=== PATIENT | male | born 1955 | race Two or more races ===

== ENCOUNTER 2018-09-14 12:09 | Outpatient (CLI) | payer BC ==
[~2018-09-14 12:09] MED LIST: CIALIS20 MG ORAL; PROSCAR5 MG ORAL; VALACYCLOVIR500 MG ORAL
--- NOTE | 2018-09-14 16:26 | Diagnostic Imaging Report ---
Indication: Cough Technique: 2 views of the chest Comparison: None Findings: Lungs and pleural spaces are clear. The heart size is normal. The bones are unremarkable except for minimal thoracic scoliotic deformity. Impression: Negative
== END 2018-09-14 14:09 | disposition home or self-care (01) ==
LOC: RAD 12:09
DX: R05 Cough (principal); M41.84 Other forms of scoliosis, thoracic region
CPT/HCPCS: 71046

== ENCOUNTER → 2020-10-16 | Outpatient (CLI) | payer BC ==
--- NOTE | 2020-10-16 14:45 | Diagnostic Imaging Report ---
Indication: Cough Technique: 2 views of the chest Comparison: 09/14/2018 Findings: Lungs and pleural spaces are clear. The heart size is normal. There are mild degenerative changes of the midthoracic spine. No significant interim change. Impression: Negative
== END | disposition home or self-care (01) ==
LOC: RAD 11:00
DX: Z01.818 Encounter for other preprocedural examination (principal); R05 Cough
CPT/HCPCS: 71046